=== PATIENT | female | born 1985 | race African-American/Black ===

== ENCOUNTER 2023-04-11 00:08 | Emergency (ER) | payer MEDICAID ==
[~2023-04-11] VITALS: Ht 172.7 cm; Wt 75.0 kg
[2023-04-11 00:25] VITALS: BP 127/87; PULSE 92; RESP 18; TEMP 98.4; O2SAT 100
[2023-04-11] MEDS ORDERED: BACITRACIN ZINC OINT UDPKT TOP ONE (01:15)
[2023-04-11] MEDS ORDERED: LIDOCAINE HCL/PF 1% 10 MG/ML 5ML VIAL INFIL ONE (02:15)
== END 2023-04-11 07:00 | disposition home or self-care (01) ==
LOC: ER 00:08
DX: S01.81XA Laceration without foreign body of other part of head, initial encounter (principal); Y08.89XA Assault by other specified means, initial encounter; Y93.89 Activity, other specified; Y92.89 Other specified places as the place of occurrence of the external cause; Y99.8 Other external cause status
CPT/HCPCS: 12011; 99283